=== PATIENT | female | born 1975 | race Caucasian/White ===

== ENCOUNTER 2017-08-03 11:11 | Inpatient (IN) | payer OTHER, MEDICAID, MEDICARE ==
[~2017-08-03] VITALS: Ht 167.6 cm; Wt 103.1 kg
[2017-08-03] MEDS ORDERED: ARIP1TAB13 PO (11:32)
[2017-08-03] MEDS ORDERED: SAPH10SU3 SL (11:32)
[2017-08-03] MEDS ORDERED: HYDR25TA5 PO (11:32)
[2017-08-03] MEDS ORDERED: PANT20TA2 PO (11:32)
[2017-08-03] MEDS ORDERED: AMLO5TAB2 PO (11:32)
[2017-08-03] MEDS ORDERED: DIVA500T PO (11:32)
[2017-08-03] MEDS ORDERED: LEVO-33 PO (11:32)
[2017-08-03] MEDS ORDERED: CLON0.5T PO (11:32)
[2017-08-03] MEDS ORDERED: RANI150T PO (11:32)
[2017-08-03 11:38] VITALS: BP 134/74; PULSE 99; RESP 18; TEMP 99.8; O2SAT 96
--- NOTE | 2017-08-03 11:56 | PD ---
HPI Chief Complaint: Psychiatric Symptoms Time Seen by Provider: 11:30 Travel History International Travel<30 days: No Contact w/Intl Traveler<30days: No Traveled to known affect area: No History of Present Illness HPI 42-year-old female with reported history of schizophrenia presents under [place] act initiated by the Police Department. The patient reports over the past few weeks she has had worsening hallucinations. She reports that she has been hearing voices that tell her to kill herself as well as her family. She has also been having visual hallucinations for example seeing witches and vampires She reports that her psychiatrist placed her on a new medication, she does not recall the name, one week ago but it does not seem to be helping. Today her father called the police and she was placed under [place] act. The patient denies suicidal or homicidal ideation. She denies any drug or alcohol use. She has no medical complaints at this time. [facility] Past Medical History Psychiatric: Yes Schizophrenia: Yes ?: Not Social History Alcohol Use: No Tobacco Use: No Substance Use: No Allergies-Medications (Allergen,Severity, Reaction): Coded Allergies: No Known Allergies (Unverified , 08/03/17) Reported Meds & Prescriptions Reported Meds & Active Scripts Active Reported Saphris (Asenapine) 10 Mg Subl 10 Mg SL BID Amlodipine (Amlodipine Besylate) 5 Mg Tab 5 Mg PO DAILY Ranitidine (Ranitidine HCl) 150 Mg Tab 150 Mg PO DAILY Hydrochlorothiazide 25 Mg Tab 25 Mg PO DAILY Aripiprazole 15 Mg Tab 15 Mg PO DAILY Clonazepam 0.5 Mg Tab 0.5 Mg PO TID Pantoprazole (Pantoprazole Sodium) 20 Mg Tab 20 Mg PO DAILY Levonorgestrel-Ethinyl Estradiol 0.1-0.02 Mg Tab 1 Tab PO DAILY Divalproex DR (Divalproex Sodium) 500 Mg Tabdr 500 Mg PO BID Review of Systems Except as stated in HPI: all other systems reviewed are Neg Physical Exam Narrative GENERAL: Pleasant well-developed well-nourished female in no acute distress answering questions appropriately. SKIN: Warm and dry. HEAD: Atraumatic. Normocephalic. EYES: Pupils equal and round. No scleral icterus. No injection or drainage. ENT: No nasal bleeding or discharge. Mucous membranes pink and moist. NECK: Trachea midline. No JVD. CARDIOVASCULAR: Regular rate and rhythm. No murmur appreciated. RESPIRATORY: No accessory muscle use. Clear to auscultation. Breath sounds equal bilaterally. GASTROINTESTINAL: Abdomen soft, non-tender, nondistended. Hepatic and splenic margins not palpable. MUSCULOSKELETAL: No obvious deformities. No clubbing. No cyanosis. No edema. NEUROLOGICAL: Awake and alert. No obvious cranial nerve deficits. Motor grossly within normal limits. Normal speech. PSYCHIATRIC: Flat affect, poor eye contact, appropriate mood. Insight into her illness and judgment appear somewhat reasonable. Data Data Last Documented VS Vital Signs Date Time Temp Pulse Resp B/P (MAP) Pulse Ox O2 Delivery O2 Flow Rate FiO2 08/03/17 11:38 99.8 99 18 134/74 (94) 96 Room Air Orders Orders Complete Blood Count With Diff (08/03/17 11:35) Comprehensive Metabolic Panel (08/03/17 11:35) Ed Urine Pregnancytest Poc (08/03/17 11:35) Psych Screen (08/03/17 11:35) Drug Screen, Random Urine (08/03/17 11:35) Alcohol (Ethanol) (08/03/17 11:35) Salicylates (Aspirin) (08/03/17 11:35) Tylenol (Acetaminophen) (08/03/17 11:35) Labs Laboratory Tests Test 08/03/17 11:40 White Blood Count 9.4 TH/MM3 Red Blood Count 4.13 MIL/MM3 Hemoglobin 13.5 GM/DL Hematocrit 39.5 % Mean Corpuscular Volume 95.6 FL Mean Corpuscular Hemoglobin 32.7 PG Mean Corpuscular Hemoglobin Concent 34.2 % Red Cell Distribution Width 13.2 % Platelet Count 138 TH/MM3 Mean Platelet Volume 10.7 FL Neutrophils (%) (Auto) 65.5 % Lymphocytes (%) (Auto) 25.2 % Monocytes (%) (Auto) 8.2 % Eosinophils (%) (Auto) 0.7 % Basophils (%) (Auto) 0.4 % Neutrophils # (Auto) 6.2 TH/MM3 Lymphocytes # (Auto) 2.4 TH/MM3 Monocytes # (Auto) 0.8 TH/MM3 Eosinophils # (Auto) 0.1 TH/MM3 Basophils # (Auto) 0.0 TH/MM3 CBC Comment DIFF FINAL Differential Comment Blood Urea Nitrogen 16 MG/DL Creatinine 0.97 MG/DL Random Glucose 104 MG/DL Total Protein 7.7 GM/DL Albumin 3.7 GM/DL Calcium Level 8.5 MG/DL Alkaline Phosphatase 61 U/L Aspartate Amino Transf (AST/SGOT) 19 U/L Alanine Aminotransferase (ALT/SGPT) 17 U/L Total Bilirubin 0.3 MG/DL Sodium Level 135 MEQ/L Potassium Level 3.6 MEQ/L Chloride Level 101 MEQ/L Carbon Dioxide Level 23.9 MEQ/L Anion Gap 10 MEQ/L Estimat Glomerular Filtration Rate 63 ML/MIN Salicylates Level 3.1 MG/DL Acetaminophen Level LESS THAN 2.0 MCG/ML Ethyl Alcohol Level LESS THAN 3 MG/DL MDM Medical Decision Making Medical Screen Exam Complete: Yes Emergency Medical Condition: Yes Medical Record Reviewed: Yes Differential Diagnosis Schizophrenia, acute psychosis, substance induced mood disorder, schizoaffective disorder Narrative Course 42-year-old female history of schizophrenia presents for evaluation of worsening auditory and visual hallucinations. Mental health screening discussed with the patient. Psychiatric screen ordered. Medically cleared. Diagnosis Primary Impression: Schizophrenia Qualified Codes: F20.9 - Schizophrenia, unspecified Isaias Peterson Aug 03, 2017 11:56
[2017-08-03 11:58] LABS: AUTOMATED NEUTROPHIL # 6.2 TH/MM3 (1.8-7.7); BASOPHIL % 0.4 % (0.0-2.0); EOSINOPHIL # 0.1 TH/MM3 (0-0.4); EOSINOPHIL % 0.7 % (0.0-4.0); HEMATOCRIT 39.5 % (35.0-46.0); HEMO FLAGS DIFF FINAL; LYMPH % 25.2 % (9.0-44.0); LYMPHOCYTE # 2.4 TH/MM3 (1.0-4.8); MEAN CELL VOLUME 95.6 FL (80.0-100.0); MEAN CORPUSCULAR HEMOGLOBIN 32.7 PG (27.0-34.0); MEAN CORPUSCULAR HGB CONC 34.2 % (32.0-36.0); MONO % 8.2 % (0.0-8.0); NEUT % 65.5 % (16.0-70.0); PLATELET COUNT 138 TH/MM3 (150-450); RED BLOOD COUNT 4.13 MIL/MM3 (4.00-5.30); RED CELL DISTRIBUTION WIDTH 13.2 % (11.6-17.2); WHITE BLOOD COUNT 9.4 TH/MM3 (4.0-11.0)
[2017-08-03 12:09] LABS: ANION GAP 10 MEQ/L (5-15)
[2017-08-03 12:17] LABS: ACETAMINOPHEN LESS THAN 2.0 MCG/ML (10.0-30.0); ALCOHOL LESS THAN 3 MG/DL (0-5); ALKALINE PHOSPHATASE 61 U/L (45-117); ALT (GPT) 17 U/L (10-53); AST (GOT) 19 U/L (15-37); BICARBONATE 23.9 MEQ/L (21.0-32.0); BLOOD UREA NITROGEN 16 MG/DL (7-18); CHLORIDE 101 MEQ/L (98-107); GLOMERULAR FILTRATION RATE 63 ML/MIN (>89); POTASSIUM 3.6 MEQ/L (3.5-5.1); SODIUM (NA) 135 MEQ/L (136-145); TOTAL BILIRUBIN ADULT 0.3 MG/DL (0.2-1.0)
[2017-08-03 13:59] VITALS: BP 141/94; PULSE 94; RESP 18; O2SAT 99
[2017-08-03] MEDS ORDERED: LORazepam 2 MG/ML VIAL IM PRN (14:45)
[2017-08-03] MEDS ORDERED: ALUMINUM/MAGNESIUM/SIMETH 30 ML CUP PO PRN (14:45)
[2017-08-03] MEDS: PANTOPRAZOLE SOD 20 MG DELAYED RELEASE TAB PO SCH (14:45)
[2017-08-03] MEDS ORDERED: MAGNESIUM HYDROXIDE SUSP 30 ML CUP PO PRN (14:45)
[2017-08-03] MEDS: ARIPiprazole 15 MG TAB PO SCH (14:45)
--- NOTE | 2017-08-03 14:54 | HHI.HP ---
Provisional Diagnosis Admission Date [place] I. Paranoid schizophrenia Certification of Person's Competence To Provide Express and Informed Consent I have personally examined Yareli Minaya , a person being served at [facility] on, Aug 03, 2017 14:45. Express and informed consent means consent voluntarily given in writing, by a competent person, after sufficient explanation and disclosure of the subject matter involved to enable the person to make a knowing and willful decision without any element of force, fraud, deceit, duress, or other form of constraint or coercion. This person is 18 years of age or older, is not now known to be incompetent to consent to treatment with a guardian advocate, and does not have a health care surrogate or proxy currently making medical treatment decisions. I have found this person to be one of the following: [] Competent to provide express and informed consent, as defined above, for voluntary admission to this facility and is competent to provide express and informed consent for treatment. He/she has the consistent capacity to make well reasoned, willful, and knowing decisions concerning his or her medical or mental health treatment. The person fully and consistently understands the purpose of the admission for examination/placement and is fully capable of personally exercising all rights [place] [x] Incompetent to provide express and informed consent to voluntary admission, and this is incompetent to provide express and informed consent to treatment. The person must be transferred to involuntary status and a petition for a guardian advocate filed with the Circuit Court. [] Refusing to provide express and informed consent to voluntary admission but is competent to provide express and informed consent for treatment. The person must be discharged or transferred to involuntary status. Form shall be completed within 24 hours of a person's arrival at the receiving facility and filed in the clinical record of each person: 1. Admitted on a voluntary basis 2. Permitted to provide express and informed consent to his/her own treatment 3. Allowed to transfer from involuntary to voluntary status 4. Prior to permitting a person to consent to his or her own treatment after having been previously found incompetent to consent to treatment. History of Present Illness Capacity: Lacks Capacity HPI 42-year-old female with multiyear history of schizophrenia, brought in for evaluation and treatment under a [place] act. Apparently the patient's father, with whom she resides, called the police after several weeks of worsening symptoms. The patient is apparently having both auditory and visual hallucinations. The patient's auditory hallucinations are of a command nature and tell her to kill herself, to kill her dog, and to kill members of her family. Apparently the patient's father is very worried and concerned about the patient's dangerousness to herself and others. Patient also reports visual hallucinations of seeing witches and vampires. Furthermore, upon interview, the patient is confused as to what medicines she takes and what reason she is here. She does intermittently admit to suicidal thinking as well as homicidal thinking and at other times she denies this. She is admitting to auditory hallucinations of a command nature. She denies the use of alcohol or drugs. Review of Systems Except as stated in HPI: all other systems reviewed are Neg Past Psych History Psychological trauma history Patient has a multiyear history of schizophrenia with both inpatient and outpatient treatment. Violence risk - others (6 mos) High Violence risk - self (6 mos) High Substance Abuse History Drugs/Alcohol past 12 months Denied Past Family Social History Coded Allergies: No Known Allergies (Unverified , 08/03/17) Reported Medications Asenapine (Saphris) 10 Mg Subl, 10 MG SL BID, #60 TAB.SL 0 Refills 08/03/17 Amlodipine (Amlodipine) 5 Mg Tab, 5 MG PO DAILY for Blood Pressure Management, # 30 TAB 0 Refills 08/03/17 Ranitidine (Ranitidine) 150 Mg Tab, 150 MG PO DAILY for Heartburn Management, # 30 TAB 0 Refills 08/03/17 Hydrochlorothiazide (Hydrochlorothiazide) 25 Mg Tab, 25 MG PO DAILY, #30 TAB 0 Refills 08/03/17 Aripiprazole (Aripiprazole) 15 Mg Tab, 15 MG PO DAILY, #30 TAB 0 Refills 08/03/17 Clonazepam (Clonazepam) 0.5 Mg Tab, 0.5 MG PO TID, #90 TAB 0 Refills 08/03/17 Pantoprazole (Pantoprazole) 20 Mg Tab, 20 MG PO DAILY for Reflux, #30 TAB 0 Refills 08/03/17 Levonorgestrel-Ethinyl Estradiol (Levonorgestrel-Ethinyl Estradiol) 0.1-0.02 Mg Tab, 1 TAB PO DAILY for Control, #28 TAB 0 Refills 08/03/[address] (Divalproex DR) 500 Mg Tabdr, 500 MG PO BID for Control Seizures, #60 TAB 0 Refills 08/03/17 Current Medications Medications (Trade) Dose Ordered Sig/Verena Route Start Time Stop Time Status Last Admin (Ativan) 1 mg Q6H PRN PO 08/03/17 14:45 UNV (Ativan Inj) 1 mg Q6H PRN IM 08/03/17 14:45 UNV (Tylenol) 650 mg Q4H PRN PO 08/03/17 14:45 UNV (Milk Of Magnesia Liq) 30 ml DAILY PRN PO 08/03/17 14:45 UNV (Mag-Al Plus Susp Liq) 30 ml Q6H PRN PO 08/03/17 14:45 UNV (Desyrel) 50 mg HS PRN PO 08/03/17 14:45 UNV (Norvasc) 5 mg DAILY PO 08/04/17 09:00 UNV (Abilify) 15 mg DAILY PO 08/03/17 14:45 UNV (KlonoPIN) 0.5 mg TID PO 08/03/17 18:00 UNV (Depakote Dr) 500 mg BID PO 08/03/17 21:00 UNV (Hydrodiuril) 25 mg DAILY PO 08/04/17 09:00 UNV (Protonix) 20 mg DAILY PO 08/03/17 14:45 UNV Non-Formulary Medication 1 tab DAILY PO 08/04/17 09:00 UNV Non-Formulary Medication 150 mg DAILY PO 08/04/17 09:00 UNV Family History Positive for thought disorders. Social History Patient lives with her father. She is unemployed. She receives Social Security disability. She denies alcohol or drug abuse. Patient's Strengths (min. 2) Verbal and has access to healthcare. Physical Exam GENERAL: SKIN: Warm and dry. HEAD: Normocephalic. EYES: No scleral icterus. No injection or drainage. NECK: Supple, trachea midline. No JVD or lymphadenopathy. CARDIOVASCULAR: Regular rate and rhythm without murmurs, gallops, or rubs. RESPIRATORY: Breath sounds equal bilaterally. No accessory muscle use. GASTROINTESTINAL: Abdomen soft, non-tender, nondistended. MUSCULOSKELETAL: No cyanosis, or edema. BACK: Nontender without obvious deformity. No CVA tenderness. Vital Signs Vital Signs Date Time Temp Pulse Resp B/P (MAP) Pulse Ox O2 Delivery O2 Flow Rate FiO2 08/03/17 13:59 94 18 141/94 (110) 99 Room Air 08/03/17 11:38 99.8 Lab Results Test 08/03/17 11:40 White Blood Count 9.4 TH/MM3 Red Blood Count 4.13 MIL/MM3 Hemoglobin 13.5 GM/DL Hematocrit 39.5 % Mean Corpuscular Volume 95.6 FL Mean Corpuscular Hemoglobin 32.7 PG Mean Corpuscular Hemoglobin Concent 34.2 % Red Cell Distribution Width 13.2 % Platelet Count 138 TH/MM3 Mean Platelet Volume 10.7 FL Neutrophils (%) (Auto) 65.5 % Lymphocytes (%) (Auto) 25.2 % Monocytes (%) (Auto) 8.2 % Eosinophils (%) (Auto) 0.7 % Basophils (%) (Auto) 0.4 % Neutrophils # (Auto) 6.2 TH/MM3 Lymphocytes # (Auto) 2.4 TH/MM3 Monocytes # (Auto) 0.8 TH/MM3 Eosinophils # (Auto) 0.1 TH/MM3 Basophils # (Auto) 0.0 TH/MM3 CBC Comment DIFF FINAL Differential Comment Blood Urea Nitrogen 16 MG/DL Creatinine 0.97 MG/DL Random Glucose 104 MG/DL Total Protein 7.7 GM/DL Albumin 3.7 GM/DL Calcium Level 8.5 MG/DL Alkaline Phosphatase 61 U/L Aspartate Amino Transf (AST/SGOT) 19 U/L Alanine Aminotransferase (ALT/SGPT) 17 U/L Total Bilirubin 0.3 MG/DL Sodium Level 135 MEQ/L Potassium Level 3.6 MEQ/L Chloride Level 101 MEQ/L Carbon Dioxide Level 23.9 MEQ/L Anion Gap 10 MEQ/L Estimat Glomerular Filtration Rate 63 ML/MIN Salicylates Level 3.1 MG/DL Urine Opiates Screen NEG Acetaminophen Level LESS THAN 2.0 MCG/ML Urine Barbiturates Screen NEG Urine Amphetamines Screen NEG Urine Benzodiazepines Screen NEG Urine Cocaine Screen NEG Urine Cannabinoids Screen NEG Ethyl Alcohol Level LESS THAN 3 MG/DL Mental Status Examination Speech: Hesitant Orientation: x3 Memory: Unremarkable Thought Process: Loose Association Thought Content: Bizarre thinking, Paranoid, Ideas of Reference Hallucination Type: Auditory, Visual Attention and Concentration: Abnormal Suicidal Ideation: Yes Previous Suicide Attempts: Yes Homicidal Ideation: Yes Previous Homicide Attempts: No Insight: Poor Judgment: WNL, Unrealistic Affect: Anxious Affect if Inappropriate: Blunt Mood: Anxious Motor Activity: Normal gait Assessment & Plan Problem List: (1) Schizophrenia, paranoid, chronic ICD Codes: F20.0 - Paranoid schizophrenia Assessment & Plan Estimated LOS: days. This is a 42-year-old female with a multiyear history of paranoid schizophrenia. She has been experiencing a increasing relapse of symptomatology over the last 6-8 weeks. She lives with her father and he is the one calling the police and reporting her auditory hallucinations, visual hallucinations, command hallucinations, suicidal thinking and homicidal thinking. Patient is felt to be at high risk of harm to self and others and is being admitted for evaluation and treatment. The patient will have a CBC and comprehensive metabolic profile to determine if any infectious process or metabolic process is causing or contributing to her psychosis. Additionally, we will check her vitamin B-12, vitamin D and thyroid stimulating hormone, to determine if any deficiencies in these areas are causing or contributing to her psychosis. This physician is also ordering Abilify Maintena 400 mg IM if the patient's father agrees. At this time the patient is not felt to be competent to make decisions regarding her care. This physician has furthermore ordered an EKG to evaluate the patient's cardiac conduction system in case psychotropic medicines put her at added risk of cardiac conduction defects. Patient is being placed back on her antihypertensive medicines, which she self-admittedly he has not been taking consistently. This physician is ordering a hospitalist consult to assist with the patient's medical issues. We are ordering a second opinion regarding the patient's need for civil commitment. This physician spoke to the patient's nurse regarding her recent behavior. Finally, case management will be involved to assist with information gathering and disposition planning. Sidney Andre MD Aug 03, 2017 14:54
[2017-08-03 16:02] VITALS: BP 160/84; PULSE 95; RESP 18; TEMP 98.4; O2SAT 95
[2017-08-03] MEDS: clonazePAM 0.5 MG TAB PO SCH (16:16)
[2017-08-03] MEDS: traZODone HCL 50 MG TAB PO PRN (20:59)
[2017-08-03] MEDS: DIVALPROEX DR 500 MG TABEC PO SCH (20:59)
[2017-08-04] MEDS: LORazepam 1 MG TAB PO PRN (00:33)
[2017-08-04 05:41] VITALS: BP 125/62; PULSE 86; RESP 18; TEMP 98.7; O2SAT 99
[2017-08-04] MEDS ORDERED: LEVONORGESTREL ETHINYL ESTRADIOL PO SCH (09:00)
[2017-08-04] MEDS: PANTOPRAZOLE SOD 20 MG DELAYED RELEASE TAB PO SCH (09:00)
[2017-08-04] MEDS: ARIPiprazole 15 MG TAB PO SCH (09:00)
[2017-08-04] MEDS: HYDROCHLOROTHIAZIDE 25 MG TAB PO SCH (09:00)
[2017-08-04] MEDS ORDERED: ABILIFY MAINTENA 400 MG IM ONE (09:00)
--- NOTE | 2017-08-04 09:02 | PD.CONS ---
[facility] By Dr. Andre Reason for Consult Medical management of hypertension Primary Care Physician Unknown Diagnoses: History of Present Illness This is a 42-year-old female past medical history of hypertension and schizophrenia who presented under [place] act secondary to hallucination. [facility] consulted for medical management. Patient stated that she has hypertension and is taking blood pressure medication. Otherwise she has no complaints. All review of systems reviewed and negative. Past Family Social History Allergies: Coded Allergies: No Known Allergies (Unverified , 08/03/17) Past Medical History Hypertension GERD Past Surgical History Tube placement and removal of bilateral ears Reported Medications Reported Meds & Active Scripts Active Reported Saphris (Asenapine) 10 Mg Subl 10 Mg SL BID Amlodipine (Amlodipine Besylate) 5 Mg Tab 5 Mg PO DAILY Ranitidine (Ranitidine HCl) 150 Mg Tab 150 Mg PO DAILY Hydrochlorothiazide 25 Mg Tab 25 Mg PO DAILY Aripiprazole 15 Mg Tab 15 Mg PO DAILY Clonazepam 0.5 Mg Tab 0.5 Mg PO TID Pantoprazole (Pantoprazole Sodium) 20 Mg Tab 20 Mg PO DAILY Levonorgestrel-Ethinyl Estradiol 0.1-0.02 Mg Tab 1 Tab PO DAILY Divalproex DR (Divalproex Sodium) 500 Mg Tabdr 500 Mg PO BID Active Ordered Medications Current Medications Lorazepam (Ativan) 1 mg Q6H PRN PO MODERATE TO SEVERE ANXIETY Last administered on 08/04/17 00:33; Start 08/03/17 at 14:45 Lorazepam (Ativan Inj) 1 mg Q6H PRN IM MODERATE TO SEVERE ANXIETY; Start at 14:45 Acetaminophen (Tylenol) 650 mg Q4H PRN PO Pain 1-5 or Temp >101F; Start at 14:45 Magnesium Hydroxide (Milk Of Magnesia Liq) 30 ml DAILY PRN PO CONSTIPATION; Start 08/03/17 at 14:45 Al Hydrox/Mg Hydrox/Simethicone (Mag-Al Plus Susp Liq) 30 ml Q6H PRN PO DYSPEPSIA Last administered on 08/03/17 18:21; Start 08/03/17 at 14:45 Trazodone HCl (Desyrel) 50 mg HS PRN PO INSOMNIA Last administered on 08/03/17 20:59; Start 08/03/17 at 14:45 Amlodipine Besylate (Norvasc) 5 mg DAILY PO ; Start 08/04/17 at 09:00 Aripiprazole (Abilify) 15 mg DAILY PO Last administered on 08/03/17 14:45; Start 08/03/17 at 14:45 Clonazepam (KlonoPIN) 0.5 mg TID PO Last administered on 08/03/17 16:16; Start 08/03/17 at 18:00 Divalproex Sodium (Depakote Dr) 500 mg BID PO Last administered on 08/03/17 20: 59; Start 08/03/17 at 21:00 Hydrochlorothiazide (Hydrodiuril) 25 mg DAILY PO ; Start 08/04/17 at 09:00 Pantoprazole Sodium (Protonix) 20 mg DAILY PO Last administered on 08/03/17 14: 45; Start 08/03/17 at 14:45 Non-Formulary Medication 1 tab DAILY PO ; Start 08/04/17 at 09:00; Status UNV Famotidine (Pepcid) 20 mg DAILY PO ; Start 08/04/17 at 09:00 Patient Own Medication PT OWN MED: ABIL... ONCE ONCE IM ; Start 08/04/17 at 09: 00; Stop 08/04/17 at 09:00; Status DC Family History Denies any past family history. Social History Patient denies any alcohol, tobacco, or illicit drug use. Physical Exam Vital Signs Vital Signs Date Time Temp Pulse Resp B/P (MAP) Pulse Ox O2 Delivery O2 Flow Rate FiO2 08/04/17 05:41 98.7 86 18 125/62 (83) 99 08/03/17 16:02 98.4 95 18 160/84 (109) 95 08/03/17 13:59 94 18 141/94 (110) 99 Room Air 08/03/17 11:38 99.8 99 18 134/74 (94) 96 Room Air Physical Exam GENERAL: This is a well-nourished, well-developed patient, in no apparent distress. SKIN: No rashes, ecchymoses or lesions. Cool and dry. HEAD: Atraumatic. Normocephalic. No temporal or scalp tenderness. EYES: Pupils equal round and reactive. Extraocular motions intact. No scleral icterus. No injection or drainage. ENT: Nose without bleeding, purulent drainage or septal hematoma. Throat without erythema, tonsillar hypertrophy or exudate. Uvula midline. Airway patent. NECK: Trachea midline. No JVD or lymphadenopathy. Supple, nontender, no meningeal signs. CARDIOVASCULAR: Regular rate and rhythm without murmurs, gallops, or rubs. RESPIRATORY: Clear to auscultation. Breath sounds equal bilaterally. No wheezes , rales, or rhonchi. GASTROINTESTINAL: Abdomen soft, non-tender, nondistended. No hepato-splenomegaly , or palpable masses. No guarding. MUSCULOSKELETAL: Extremities without clubbing, cyanosis, or edema. No joint tenderness, effusion, or edema noted. No calf tenderness. Negative Homans sign bilaterally. NEUROLOGICAL: Awake and alert. Patient seems to have a speech impairment but is able to communicate. Cranial nerves II through XII intact. Motor and sensory grossly within normal limits. Five out of 5 muscle strength in all muscle groups. Normal speech. Laboratory Laboratory Tests Test 08/03/17 11:40 White Blood Count 9.4 Red Blood Count 4.13 Hemoglobin 13.5 Hematocrit 39.5 Mean Corpuscular Volume 95.6 Mean Corpuscular Hemoglobin 32.7 Mean Corpuscular Hemoglobin Concent 34.2 Red Cell Distribution Width 13.2 Platelet Count 138 Mean Platelet Volume 10.7 Neutrophils (%) (Auto) 65.5 Lymphocytes (%) (Auto) 25.2 Monocytes (%) (Auto) 8.2 Eosinophils (%) (Auto) 0.7 Basophils (%) (Auto) 0.4 Neutrophils # (Auto) 6.2 Lymphocytes # (Auto) 2.4 Monocytes # (Auto) 0.8 Eosinophils # (Auto) 0.1 Basophils # (Auto) 0.0 CBC Comment DIFF FINAL Differential Comment Blood Urea Nitrogen 16 Creatinine 0.97 Random Glucose 104 Total Protein 7.7 Albumin 3.7 Calcium Level 8.5 Alkaline Phosphatase 61 Aspartate Amino Transf (AST/SGOT) 19 Alanine Aminotransferase (ALT/SGPT) 17 Total Bilirubin 0.3 Sodium Level 135 Potassium Level 3.6 Chloride Level 101 Carbon Dioxide Level 23.9 Anion Gap 10 Estimat Glomerular Filtration Rate 63 Salicylates Level 3.1 Urine Opiates Screen NEG Acetaminophen Level LESS THAN 2.0 Urine Barbiturates Screen NEG Urine Amphetamines Screen NEG Urine Benzodiazepines Screen NEG Urine Cocaine Screen NEG Urine Cannabinoids Screen NEG Ethyl Alcohol Level LESS THAN 3 Result Diagram: 08/03/17 1140 08/03/17 1140 Assessment and Plan Assessment and Plan This is a 42-year-old female past medical history of hypertension and schizophrenia who presented under [place] act secondary to hallucination Schizophrenia with psychosis/[place] act -Management per inpatient psychiatry. Hypertension -Blood pressure reviewed. Seems to be labile and patient does have multiple normotensive reading. Labile blood pressure readings most likely secondary to agitation. Continue with home regimen. GERD -Home regimen already resumed. DVT prophylaxis -Encourage ambulation. Discussed Condition With patient Jessica Mejia MD Aug 04, 2017 09:02
[2017-08-04] MEDS: amLODIPine BESYLATE 5 MG TAB PO SCH (09:19)
[2017-08-04] MEDS: FAMOTIDINE 20 MG TAB PO SCH (09:19)
[2017-08-04] MEDS: clonazePAM 0.5 MG TAB PO SCH ×3 (09:19→18:00)
[2017-08-04] MEDS: DIVALPROEX DR 500 MG TABEC PO SCH ×2 (09:19→21:42)
--- NOTE | 2017-08-04 09:51 | PD.PSY.CON ---
Provisional Diagnosis Admission Date Aug 03, 2017 at 14:35 [place] I. 1. Adjustment disorder with disturbance of emotions and conduct 2. History of schizophrenia [place] II. 1. Suspect intellectual disability History of Present Illness Service Psychiatry Consult Requested By Dr. Andre Reason for Consult Second opinion for involuntary psychiatric hospitalization Primary Care Physician Unknown HPI From Dr. Andre's H&P: 42-year-old female with multiyear history of schizophrenia, brought in for evaluation and treatment under a [place] act. Apparently the patient's father, with whom she resides, called the police after several weeks of worsening symptoms. The patient is apparently having both auditory and visual hallucinations. The patient's auditory hallucinations are of a command nature and tell her to kill herself, to kill her dog, and to kill members of her family. Apparently the patient's father is very worried and concerned about the patient's dangerousness to herself and others. Patient also reports visual hallucinations of seeing witches and vampires. Furthermore, upon interview, the patient is confused as to what medicines she takes and what reason she is here. She does intermittently admit to suicidal thinking as well as homicidal thinking and at other times she denies this. She is admitting to auditory hallucinations of a command nature. She denies the use of alcohol or drugs. On my examination today: Patient seen and examined with counselor and nurse. Chart reviewed. Case discussed with nursing staff. On my examination today, the patient seems quite childlike, and I do suspect some degree of intellectual disability. The patient tells me that for about the past month or so she has been experiencing visual hallucinations of vampires and command auditory hallucinations to kill her mother, although she then says that her mother and stepfather are . She also says that she believes that her brother might be a vampire. When asked about current AVH, she says that she is hearing voices "a little bit to kill myself, but I'm not going to do it." She insists that she has been adherent with her psychotropic medications and says that her outpatient provider has started her on a new psychotropic, although she does not feel that it has been particularly efficacious for her problems. Sleep is reportedly somewhat poor. Mood is described as "tired today." She does not appear at all dysphoric. No hypomanic or manic symptoms elicited. No delusional material. Main stressor seems to be that "my father's girlfriend has been mean to me. She is going behind his back. She's been rude to me." Denies side effects from current med regimen. No physical complaints. Remainder of the psychiatric ROS is negative. Patient says that her father is POA. Past psychiatric history: The patient has a history of schizophrenia area she follows with Dr. Carbajal. She cannot recall when she was most recently psychiatrically admitted but says that it was "a while ago. She denies a history of suicide attempts. She denies a history of violent behavior. Family history: Patient denies any family history of mental illness. Chemical dependency history: Patient denies any abuse of drugs or alcohol. Social history: Patient denies a history of abuse. She lives with her father. She is single with no children. She completed the 12th grade in special education classes. She has worked in the past in [email or web address] and also in a [employer]. She is presently on disability. She denies any access to guns or firearms. Denies any legal problems. I did endeavor to reach out to the patient's father by phone for collateral. I left a [employer] voicemail requesting a call back. Review of Systems ROS Limitations: Poor Historian Except as stated in HPI: all other systems reviewed are Neg Past Family Social History Coded Allergies: No Known Allergies (Unverified , 08/03/17) Past Medical History See electronic medical record Reported Medications Asenapine (Saphris) 10 Mg Subl, 10 MG SL BID, #60 TAB.SL 0 Refills 08/03/17 Amlodipine (Amlodipine) 5 Mg Tab, 5 MG PO DAILY for Blood Pressure Management, # 30 TAB 0 Refills 08/03/17 Ranitidine (Ranitidine) 150 Mg Tab, 150 MG PO DAILY for Heartburn Management, # 30 TAB 0 Refills 08/03/17 Hydrochlorothiazide (Hydrochlorothiazide) 25 Mg Tab, 25 MG PO DAILY, #30 TAB 0 Refills 08/03/17 Aripiprazole (Aripiprazole) 15 Mg Tab, 15 MG PO DAILY, #30 TAB 0 Refills 08/03/17 Clonazepam (Clonazepam) 0.5 Mg Tab, 0.5 MG PO TID, #90 TAB 0 Refills 08/03/17 Pantoprazole (Pantoprazole) 20 Mg Tab, 20 MG PO DAILY for Reflux, #30 TAB 0 Refills 08/03/17 Levonorgestrel-Ethinyl Estradiol (Levonorgestrel-Ethinyl Estradiol) 0.1-0.02 Mg Tab, 1 TAB PO DAILY for Control, #28 TAB 0 Refills 08/03/[address] (Divalproex DR) 500 Mg Tabdr, 500 MG PO BID for Control Seizures, #60 TAB 0 Refills 08/03/17 Current Medications Medications (Trade) Dose Ordered Sig/Verena Route Start Time Stop Time Status Last Admin (Ativan) 1 mg Q6H PRN PO 08/03/17 14:45 08/04/17 00:33 (Ativan Inj) 1 mg Q6H PRN IM 08/03/17 14:45 (Tylenol) 650 mg Q4H PRN PO 08/03/17 14:45 (Milk Of Magnesia Liq) 30 ml DAILY PRN PO 08/03/17 14:45 (Mag-Al Plus Susp Liq) 30 ml Q6H PRN PO 08/03/17 14:45 08/03/17 18:21 (Desyrel) 50 mg HS PRN PO 08/03/17 14:45 08/03/17 20:59 (Norvasc) 5 mg DAILY PO 08/04/17 09:00 08/04/17 09:19 (Abilify) 15 mg DAILY PO 08/03/17 14:45 08/04/17 09:00 (KlonoPIN) 0.5 mg TID PO 08/03/17 18:00 08/04/17 09:19 (Depakote Dr) 500 mg BID PO 08/03/17 21:00 08/04/17 09:19 (Hydrodiuril) 25 mg DAILY PO 08/04/17 09:00 (Protonix) 20 mg DAILY PO 08/03/17 14:45 08/04/17 09:00 Non-Formulary Medication 1 tab DAILY PO 08/04/17 09:00 UNV (Pepcid) 20 mg DAILY PO 08/04/17 09:00 08/04/17 09:19 Patient's Strengths (min. 2) In a monitored setting. Verbally fluent. Physical Exam Physical exam completed by hospitalist baby registry sales consultant. On my examination today, the patient appears to be in no acute physical distress. No abnormal motor movements noted. Labs and vitals reviewed: Vital Signs Vital Signs Date Time Temp Pulse Resp B/P (MAP) Pulse Ox O2 Delivery O2 Flow Rate FiO2 08/04/17 05:41 98.7 86 18 125/62 (83) 99 08/03/17 13:59 Room Air Lab Results Item Value Date Time White Blood Count 9.4 TH/MM3 08/03/17 1140 Hemoglobin 13.5 GM/DL 08/03/17 1140 Platelet Count 138 TH/MM3 L 08/03/17 1140 Sodium Level 135 MEQ/L L 08/03/17 1140 Potassium Level 3.6 MEQ/L 08/03/17 1140 Chloride Level 101 MEQ/L 08/03/17 1140 Carbon Dioxide Level 23.9 MEQ/L 08/03/17 1140 Blood Urea Nitrogen 16 MG/DL 08/03/17 1140 Creatinine 0.97 MG/DL 08/03/17 1140 Aspartate Amino Transf (AST/SGOT) 19 U/L 08/03/17 1140 Alanine Aminotransferase (ALT/SGPT) 17 U/L 08/03/17 1140 Alkaline Phosphatase 61 U/L 08/03/17 1140 Urine Opiates Screen NEG 08/03/17 1140 Urine Barbiturates Screen NEG 08/03/17 1140 Urine Amphetamines Screen NEG 08/03/17 1140 Urine Benzodiazepines Screen NEG 08/03/17 1140 Urine Cocaine Screen NEG 08/03/17 1140 Urine Cannabinoids Screen NEG 08/03/17 1140 Ethyl Alcohol Level LESS THAN 3 MG/DL 08/03/17 1140 EKG read as sinus rhythm with a QTC of 378 ms. ED urumt-dy-mvee test negative. Mental Status Examination No motor abnormalities noted. Appearance Well dressed and groomed. Speech: Hesitant, Other (odd speech pattern, stretching out the end of words.) Orientation: x3 Memory: Unremarkable Thought Process: Circumstantial Thought Content: Other (believes brother may be a vampire) Language Unremarkable Fund of Knowledge Reduced Hallucination Type: Auditory (as above. Patient does not appear internally stimulated.), Visual (as above) Attention and Concentration: Abnormal Suicidal Ideation: Yes Previous Suicide Attempts: No Homicidal Ideation: No (Pt reports CAH but no associated HI) Previous Homicide Attempts: No Insight: Poor Judgment: WNL, Poor Affect: Other (childlike) Mood: Euthymic Motor Activity: Normal gait Assessment & Plan Problem List: (1) Adjustment disorder with mixed disturbance of emotions and conduct ICD Codes: F43.25 - Adjustment disorder with mixed disturbance of emotions and conduct (2) Intellectual disability ICD Codes: F79 - Unspecified intellectual disabilities Assessment & Plan: Suspected (3) History of schizophrenia ICD Codes: Z86.59 - Personal history of other mental and behavioral disorders Assessment & Plan 42-year-old female with psychiatric history as detailed above who presents under a [place] act. Initially evaluated by Dr. Andre who continued patient's apparent historical diagnosis of schizophrenia. Patient presents to me as chiefly intellectually disabled and likely experiencing an adjustment reaction to family discord, namely between patient and father's girlfriend. She does continue to report concerning symptoms, such as CAH to self-injure although the patient does not appear at all internally stimulated nor does she appear at all distressed by these reported symptoms. Quite the contrary, she appears euthymic and even enjoying the attention she is getting on the unit. Although my suspicion for psychotic process is lower, I will nonetheless retain the patient on the unit for observation and for a med adjustment. I will be assuming primary care of the case. Retain inpatient. I concur with Dr. Andre that the patient meets criteria for involuntary psychiatric hospitalization under the [place] act, and I completed the second opinion paperwork. Healthcare surrogate/guardian advocate has been requested. I will follow up on the laboratories ordered by Dr. Andre and have also added a Depakote and ammonia level. I will titrate the patient's Abilify to 20 mg daily to manage reported symptoms. I will discontinue Maintena as we do not have enough data to ensure that this agent is well tolerated, and it is not clear that non-adherence is an issue. Continue to hold Saphris. Continue Klonopin and Depakote as ordered. Appreciate hospitalist input. Continue medical meds as ordered by the hospitalist. Continue to monitor on the high acuity unit. Continue other medications and care as ordered. Discharge Planning Pending psychiatric stabilization. Request HC Surrog/Guard Advoc?: Yes Brian Dumont MD Aug 04, 2017 09:50
[2017-08-04 13:18] LABS: AUTOMATED NEUTROPHIL # 5.1 TH/MM3 (1.8-7.7); BASOPHIL % 0.4 % (0.0-2.0); EOSINOPHIL % 0.6 % (0.0-4.0); HEMATOCRIT 38.6 % (35.0-46.0); HEMO FLAGS DIFF FINAL; LYMPH % 26.7 % (9.0-44.0); LYMPHOCYTE # 2.1 TH/MM3 (1.0-4.8); MEAN CELL VOLUME 96.5 FL (80.0-100.0); MEAN CORPUSCULAR HEMOGLOBIN 32.3 PG (27.0-34.0); MEAN CORPUSCULAR HGB CONC 33.5 % (32.0-36.0); MONO % 7.6 % (0.0-8.0); NEUT % 64.7 % (16.0-70.0); PLATELET COUNT 134 TH/MM3 (150-450); RED CELL DISTRIBUTION WIDTH 13.4 % (11.6-17.2); WHITE BLOOD COUNT 7.9 TH/MM3 (4.0-11.0)
[2017-08-04 13:40] LABS: ALT (GPT) 17 U/L (10-53); ANION GAP 9 MEQ/L (5-15); AST (GOT) 23 U/L (15-37); BICARBONATE 25.2 MEQ/L (21.0-32.0); BLOOD UREA NITROGEN 11 MG/DL (7-18); CHLORIDE 102 MEQ/L (98-107); GLOMERULAR FILTRATION RATE 63 ML/MIN (>89); POTASSIUM 3.7 MEQ/L (3.5-5.1); SODIUM (NA) 136 MEQ/L (136-145)
--- NOTE | 2017-08-04 13:43 | EKG ---
Date Performed: 08/04/2017 Time Performed: 07:51:57 PTAGE: 42 years EKG: Sinus rhythm LOW QRS VOLTAGE IN PRECORDIAL LEADS BORDERLINE ECG NO PREVIOUS TRACING DOCTOR: Marquis Fairchild Interpretating Date/Time 08/04/2017 13:39:16
[2017-08-04 14:07] LABS: ALKALINE PHOSPHATASE 54 U/L (45-117); HDL CHOLESTEROL 65.9 MG/DL (40.0-60.0); LDL CHOLESTEROL 83 MG/DL (0-99); TOTAL BILIRUBIN ADULT 0.4 MG/DL (0.2-1.0)
[2017-08-04 18:01] LABS: HEMOGLOBIN A1a 1.1 %; HEMOGLOBIN A1b 0.7 %; HEMOGLOBIN Ao 86.8 %; HEMOGLOBIN F 1.1 %; HEMOGLOBIN LA1C 1.8 %; HEMOGLOBIN P3 3.3 %
[2017-08-04 18:15] VITALS: BP 139/65; PULSE 72; RESP 20; TEMP 97.7; O2SAT 99
[2017-08-04] MEDS: traZODone HCL 50 MG TAB PO PRN (21:42)
[2017-08-05 05:38] VITALS: BP 151/71; PULSE 78; RESP 16; TEMP 98.3; O2SAT 99
[2017-08-05] MEDS: DIVALPROEX DR 500 MG TABEC PO SCH ×2 (08:45→20:43)
[2017-08-05] MEDS: amLODIPine BESYLATE 5 MG TAB PO SCH (08:45)
[2017-08-05] MEDS: HYDROCHLOROTHIAZIDE 25 MG TAB PO SCH (08:45)
[2017-08-05] MEDS: PANTOPRAZOLE SOD 20 MG DELAYED RELEASE TAB PO SCH (08:45)
[2017-08-05] MEDS: clonazePAM 0.5 MG TAB PO SCH ×3 (08:45→18:00)
[2017-08-05] MEDS: ETHINYL ESTRADIOL PO SCH (08:45)
[2017-08-05] MEDS: LEVONORGESTREL PO SCH (08:45)
[2017-08-05] MEDS: FAMOTIDINE 20 MG TAB PO SCH (08:45)
--- NOTE | 2017-08-05 11:32 | HHI.PYPN ---
Subjective Remarks Patient seen and examined with counselor. Chart reviewed. Case discussed with nursing staff. No behavioral issues overnight. On my examination today, the patient is smiling and appears quite euthymic. She remains childlike. She does say that she wants to go home and says that she slept well overnight. She continues to say in an offhand fashion that she is experiencing CAH to self injure, although she denies any suicidal or homicidal ideation and says that she will go to nursing staff if any of this changes. She denies any visual hallucinations. Denies side effects from medications. No physical complaints. Remains upset at father's girlfriend saying that she is "rude" to the patient. Review of Systems ROS Limitations: Poor Historian Except as stated in HPI: all other systems reviewed are Neg Objective Alert: Yes [place]: Person, Place Mood: Happy Affect: Other (childlike) Memory Intact: Comment (not formally assessed) Hallucinations: Auditory (Reports CAH to self-injure. Does not appear int stim.), Visual (Denies) Delusions: No Delusion Type: Other (No delusions) Suicidal: Ideation (Denies SI) Homicidal: Ideation (Denies HI) Insight/Judgment Poor Remarks No motor abnormalities noted. Thought process fairly linear. Speech peculiarity of stretching out the tail-end of words continues. Grooming and hygiene good. Labs Test 08/04/17 11:58 08/04/17 18:35 White Blood Count 7.9 TH/MM3 Red Blood Count 4.00 MIL/MM3 Hemoglobin 12.9 GM/DL Hematocrit 38.6 % Mean Corpuscular Volume 96.5 FL Mean Corpuscular Hemoglobin 32.3 PG Mean Corpuscular Hemoglobin Concent 33.5 % Red Cell Distribution Width 13.4 % Platelet Count 134 TH/MM3 Mean Platelet Volume 11.9 FL Neutrophils (%) (Auto) 64.7 % Lymphocytes (%) (Auto) 26.7 % Monocytes (%) (Auto) 7.6 % Eosinophils (%) (Auto) 0.6 % Basophils (%) (Auto) 0.4 % Neutrophils # (Auto) 5.1 TH/MM3 Lymphocytes # (Auto) 2.1 TH/MM3 Monocytes # (Auto) 0.6 TH/MM3 Eosinophils # (Auto) 0.0 TH/MM3 Basophils # (Auto) 0.0 TH/MM3 CBC Comment DIFF FINAL Differential Comment Blood Urea Nitrogen 11 MG/DL Creatinine 0.97 MG/DL Random Glucose 109 MG/DL Total Protein 7.1 GM/DL Albumin 3.4 GM/DL Calcium Level 8.3 MG/DL Alkaline Phosphatase 54 U/L Aspartate Amino Transf (AST/SGOT) 23 U/L Alanine Aminotransferase (ALT/SGPT) 17 U/L Total Bilirubin 0.4 MG/DL Sodium Level 136 MEQ/L Potassium Level 3.7 MEQ/L Chloride Level 102 MEQ/L Carbon Dioxide Level 25.2 MEQ/L Anion Gap 9 MEQ/L Estimat Glomerular Filtration Rate 63 ML/MIN Hemoglobin A1c 4.9 % Triglycerides Level 87 MG/DL Cholesterol Level 166 MG/DL LDL Cholesterol 83 MG/DL HDL Cholesterol 65.9 MG/DL Cholesterol/HDL Ratio 2.51 RATIO Vitamin B12 Level 516 PG/ML 25-Hydroxy Vitamin D Total 39.1 ng/ML Thyroid Stimulating Hormone 3rd Gen 1.560 uIU/ML Ammonia 26 MCMOL/L Valproic Acid (Depakene) Level 57 MCG/ML Labs reviewed. Platelet count stable. GFR stable. TSH, vitamin D and vitamin B12 level all within normal limits. Depakote level within the therapeutic range and ammonia level not elevated. Vitals/IOs Vital Signs Date Time Temp Pulse Resp B/P (MAP) Pulse Ox O2 Delivery O2 Flow Rate FiO2 08/05/17 05:38 98.3 78 16 151/71 (97) 99 08/03/17 13:59 Room Air Assessment & Plan Problem List: (1) Adjustment disorder with mixed disturbance of emotions and conduct ICD Codes: F43.25 - Adjustment disorder with mixed disturbance of emotions and conduct (2) Intellectual disability ICD Codes: F79 - Unspecified intellectual disabilities (3) History of schizophrenia ICD Codes: Z86.59 - Personal history of other mental and behavioral disorders Assessment & Plan Continue to suspect primarily an adjustment reaction related to discord and conflict with patient's father's girlfriend. Titrate Abilify to 25 mg daily. Continue to monitor on the high acuity unit. Continue other medications and care as ordered. Justification for Cont. Inpt. monitoring for impairments in safety; none noted. Medication changes. Discharge Planning I see from counselors notes that the patient's family is pushing for assisted living placement or even state psychiatric hospitalization. I certainly do not think the latter is appropriate in the present case, although [facility] placement might be considered if patient is willing. I did broach the topic today, and she is presently at best lukewarm about the possibility of being placed. Request HC Surrog/Guard Advoc?: Yes Brian Dumont MD Aug 05, 2017 11:32
[2017-08-05] MEDS ORDERED: PILL SPLITTER OTHER PRN (14:30)
[2017-08-05 17:51] VITALS: BP 146/69; PULSE 81; RESP 18; TEMP 98.4; O2SAT 99
[2017-08-05] MEDS: traZODone HCL 50 MG TAB PO PRN (20:46)
[2017-08-05] MEDS: LORazepam 1 MG TAB PO PRN (20:46)
[2017-08-06 06:14] VITALS: BP 131/58; PULSE 74; RESP 18; TEMP 98.4; O2SAT 98
[2017-08-06] MEDS: PANTOPRAZOLE SOD 20 MG DELAYED RELEASE TAB PO SCH (08:04)
[2017-08-06] MEDS: HYDROCHLOROTHIAZIDE 25 MG TAB PO SCH (08:04)
[2017-08-06] MEDS: clonazePAM 0.5 MG TAB PO SCH ×3 (08:04→17:47)
[2017-08-06] MEDS: ARIPiprazole 10 MG TAB PO SCH (08:04)
[2017-08-06] MEDS: ETHINYL ESTRADIOL PO SCH (08:05)
[2017-08-06] MEDS: DIVALPROEX DR 500 MG TABEC PO SCH ×2 (08:05→20:24)
[2017-08-06] MEDS: amLODIPine BESYLATE 5 MG TAB PO SCH (08:05)
[2017-08-06] MEDS: FAMOTIDINE 20 MG TAB PO SCH (08:05)
[2017-08-06] MEDS: LEVONORGESTREL PO SCH (08:05)
--- NOTE | 2017-08-06 10:29 | HHI.PYPN ---
Subjective Remarks Patient seen and examined with counselor. Chart reviewed. Case discussed with nursing staff who reports patient has been no behavioral problem. Patient is reportedly complaining of some dysuria per nurse. On my examination today, the patient is quite childlike. She says that she is feeling well. She is requesting discharge. She denies any AVH. She continues to insist that conflict with her father's girlfriend is the cause of her admission, saying "she 's always sending me in to the hospital." Patient says that she just plans to ignore father's girlfriend going forward to limit conflict. Denies side effects from medications. No physical complaints. Review of Systems ROS Limitations: Poor Historian Except as stated in HPI: all other systems reviewed are Neg Objective Alert: Yes [place]: Person, Place Mood: Happy Affect: Euthymic, Other (childlike) Memory Intact: Comment (not assessed) Hallucinations: Other (denies AVH) Delusions: No Delusion Type: Other (No delusions elicited) Suicidal: Ideation (no SI) Homicidal: Ideation (no HI) Insight/Judgment Poor Remarks No motor abnormalities noted. Labs Labs reviewed. Vitals/IOs Vital Signs Date Time Temp Pulse Resp B/P (MAP) Pulse Ox O2 Delivery O2 Flow Rate FiO2 08/06/17 06:14 98.4 74 18 131/58 (82) 98 08/03/17 13:59 Room Air Assessment & Plan Problem List: (1) Adjustment disorder with mixed disturbance of emotions and conduct ICD Codes: F43.25 - Adjustment disorder with mixed disturbance of emotions and conduct (2) Intellectual disability ICD Codes: F79 - Unspecified intellectual disabilities (3) History of schizophrenia ICD Codes: Z86.59 - Personal history of other mental and behavioral disorders Assessment & Plan Continue to suspect presenting symptoms related to acting out as part of intellectual disability. No evidence of ted gene psychosis on the unit. Continue Abilify and other psychotropics as ordered. Check a UA. Continue to monitor on the inpatient unit. Continue other medications and care as ordered. Justification for Cont. Inpt. Monitoring for impairments in safety, none noted. Discharge Planning Possible discharge shortly after the weekend barring some clinical deterioration. Counselor to reach out to father. Request HC Surrog/Guard Advoc?: Yes Brian Dumont MD Aug 06, 2017 10:29
[2017-08-06 15:02] LABS: BACTERIA, URINE MANY /hpf; BLOOD, URINE MOD (NEG); COMMENT (UR) CULTURE INDICATED; CULTURE IF INDICATED CULTURE INDICATED; GLUCOSE,URINE NEG (NEG); KETONE, URINE NEG (NEG); MUCUS URINE FEW /lpf (OCC); NITRITE,URINE NEG (NEG); SQUAMOUS EPITHELIAL CELL URINE 23 /hpf (0-5); URINE COLOR YELLOW (YELLW/STRAW)
[2017-08-06 18:23] VITALS: BP 138/72; PULSE 79; RESP 17; TEMP 97.4; O2SAT 99
[2017-08-06] MEDS: traZODone HCL 50 MG TAB PO PRN (20:25)
[2017-08-07 05:34] VITALS: BP 132/71; PULSE 81; RESP 16; TEMP 99; O2SAT 98
[2017-08-07] MEDS: LEVONORGESTREL PO SCH (08:36)
[2017-08-07] MEDS: ETHINYL ESTRADIOL PO SCH (08:36)
[2017-08-07] MEDS: DIVALPROEX DR 500 MG TABEC PO SCH ×2 (08:37→20:24)
[2017-08-07] MEDS: ARIPiprazole 10 MG TAB PO SCH (08:37)
[2017-08-07] MEDS: amLODIPine BESYLATE 5 MG TAB PO SCH (08:38)
[2017-08-07] MEDS: clonazePAM 0.5 MG TAB PO SCH ×3 (08:38→17:06)
[2017-08-07] MEDS: HYDROCHLOROTHIAZIDE 25 MG TAB PO SCH (08:38)
[2017-08-07] MEDS: FAMOTIDINE 20 MG TAB PO SCH (08:39)
[2017-08-07] MEDS: PANTOPRAZOLE SOD 20 MG DELAYED RELEASE TAB PO SCH (08:40)
--- NOTE | 2017-08-07 13:09 | HHI.PYPN ---
Subjective Remarks Patient seen and case discussed with nurse. Labs reviewed. Continues to remain loud, intrusive, impulsive and inappropriate. Review of Systems Except as stated in HPI: all other systems reviewed are Neg Objective Alert: Yes [place]: Person, Place Mood: Happy Affect: Euthymic, Other (childlike) Memory Intact: Comment (not assessed) Hallucinations: Other (denies AVH) Delusions: No Delusion Type: Other (No delusions elicited) Suicidal: Ideation (no SI) Homicidal: Ideation (no HI) Insight/Judgment Impaired Labs Test 08/06/17 14:26 Urine Color YELLOW Urine Turbidity CLOUDY Urine pH 7.0 Urine Specific [place] 1.018 Urine Protein 30 mg/dL Urine Glucose (UA) NEG mg/dL Urine Ketones NEG mg/dL Urine Occult Blood MOD Urine Nitrite NEG Urine Bilirubin NEG Urine Urobilinogen LESS THAN 2.0 MG/DL Urine Leukocyte Esterase LARGE Urine RBC 9 /hpf Urine WBC 21 /hpf Urine Squamous Epithelial Cells 23 /hpf Urine Amorphous Sediment RARE Urine Bacteria MANY /hpf Urine Mucus FEW /lpf Microscopic Urinalysis Comment CULTURE INDICATED Date/Time Source Procedure Growth Status 08/06/17 14:26 Urine Clean Catch Urine Culture - Final 50-100,000 CFU/ML MIXED GRAM POSITIVE... Complete Vitals/IOs Vital Signs Date Time Temp Pulse Resp B/P (MAP) Pulse Ox O2 Delivery O2 Flow Rate FiO2 08/07/17 05:34 99.0 81 16 132/71 (91) 98 08/03/17 13:59 Room Air Assessment & Plan Problem List: (1) Adjustment disorder with mixed disturbance of emotions and conduct ICD Codes: F43.25 - Adjustment disorder with mixed disturbance of emotions and conduct (2) Intellectual disability ICD Codes: F79 - Unspecified intellectual disabilities (3) History of schizophrenia ICD Codes: Z86.59 - Personal history of other mental and behavioral disorders Assessment & Plan Estimated LOS: days continue antipsychotic and mood stabilizing therapies. Justification for Cont. Inpt. Patient remains psychotic and unable to care for self. Request HC Surrog/Guard Advoc?: Yes Sidney Andre MD Aug 07, 2017 13:09
[2017-08-07 17:29] VITALS: BP 132/71; PULSE 95; RESP 17; TEMP 98.3; O2SAT 98
[2017-08-07] MEDS: traZODone HCL 50 MG TAB PO PRN (20:24)
[2017-08-08 05:53] VITALS: BP 136/80; PULSE 83; RESP 18; TEMP 98.2; O2SAT 98
[2017-08-08] MEDS: ARIPiprazole 10 MG TAB PO SCH (08:15)
[2017-08-08] MEDS: LEVONORGESTREL PO SCH (08:15)
[2017-08-08] MEDS: ETHINYL ESTRADIOL PO SCH (08:15)
[2017-08-08] MEDS: HYDROCHLOROTHIAZIDE 25 MG TAB PO SCH (08:16)
[2017-08-08] MEDS: DIVALPROEX DR 500 MG TABEC PO SCH ×2 (08:16→21:00)
[2017-08-08] MEDS: clonazePAM 0.5 MG TAB PO SCH ×3 (08:17→17:20)
[2017-08-08] MEDS: amLODIPine BESYLATE 5 MG TAB PO SCH (08:17)
[2017-08-08] MEDS: PANTOPRAZOLE SOD 20 MG DELAYED RELEASE TAB PO SCH (08:18)
[2017-08-08] MEDS: FAMOTIDINE 20 MG TAB PO SCH (08:18)
--- NOTE | 2017-08-08 13:12 | HHI.PYPN ---
Subjective Remarks Patient seen and examined with nurse. Chart reviewed. Case discussed with nursing staff. No behavioral issues noted overnight. On my examination today, the patient reports that she slept well. She does report some auditory hallucinations last night but denies any AVH this morning. She says that she simply ignored them when they happen. In good spirits; no mood symptoms. Denies side effects from medications. No physical complaints. Review of Systems ROS Limitations: Poor Historian Except as stated in HPI: all other systems reviewed are Neg Objective Alert: Yes [place]: Person, Place Mood: Calm, Happy Affect: Euthymic, Other (remains fairly childlike) Memory Intact: Comment (not assessed) Hallucinations: Other (denies AVH currently) Delusions: No Delusion Type: Other (no delusional material) Suicidal: Ideation (no SI) Homicidal: Ideation (no HI) Insight/Judgment Poor Remarks No motoric abnormalities noted. Grooming and hygiene good. Labs Date/Time Source Procedure Growth Status 08/06/17 14:26 Urine Clean Catch Urine Culture - Final 50-100,000 CFU/ML MIXED GRAM POSITIVE... Complete Labs reviewed. Urinalysis reveals mixed reina Vitals/IOs Vital Signs Date Time Temp Pulse Resp B/P (MAP) Pulse Ox O2 Delivery O2 Flow Rate FiO2 08/08/17 05:53 98.2 83 18 136/80 (98) 98 Assessment & Plan Problem List: (1) Adjustment disorder with mixed disturbance of emotions and conduct ICD Codes: F43.25 - Adjustment disorder with mixed disturbance of emotions and conduct (2) Intellectual disability ICD Codes: F79 - Unspecified intellectual disabilities (3) History of schizophrenia ICD Codes: Z86.59 - Personal history of other mental and behavioral disorders Assessment & Plan Titrate Abilify to 30 mg daily to target recent auditory hallucinations. Continue other psychotropics as ordered. Continue to monitor on the inpatient unit. Continue other medications and care as ordered. Justification for Cont. Inpt. Risk for decompensation Discharge Planning Discharge home versus [facility] Request HC Surrog/Guard Advoc?: Yes Brian Dumont MD Aug 08, 2017 13:12
--- NOTE | 2017-08-08 15:39 | HHI.PR ---
Subjective Remarks Follow-up for medical management Patient no complaints. She stated that she is very anxious to go back home her father does not want her home. She stated that she was told she would have to go to SNF. Otherwise she denies any pain and stated that she is doing well. Objective Vitals Vital Signs Date Time Temp Pulse Resp B/P (MAP) Pulse Ox O2 Delivery O2 Flow Rate FiO2 08/08/17 05:53 98.2 83 18 136/80 (98) 98 08/07/17 17:29 98.3 95 17 132/71 (91) 98 Result Diagram: 08/04/17 1158 08/04/17 1158 Objective Remarks GENERAL: in NAD CARDIOVASCULAR: Regular rate and rhythm without murmurs, gallops, or rubs. RESPIRATORY: Breath sounds equal bilaterally. No accessory muscle use. GASTROINTESTINAL: Abdomen soft, non-tender, nondistended. MUSCULOSKELETAL: No cyanosis, or edema. BACK: Nontender without obvious deformity. No CVA tenderness. Medications and IVs Current Medications Lorazepam (Ativan) 1 mg Q6H PRN PO MODERATE TO SEVERE ANXIETY Last administered on 08/05/17 20:46; Start 08/03/17 at 14:45 Lorazepam (Ativan Inj) 1 mg Q6H PRN IM MODERATE TO SEVERE ANXIETY; Start at 14:45 Acetaminophen (Tylenol) 650 mg Q4H PRN PO Pain 1-5 or Temp >101F; Start at 14:45 Magnesium Hydroxide (Milk Of Magnesia Liq) 30 ml DAILY PRN PO CONSTIPATION; Start 08/03/17 at 14:45 Al Hydrox/Mg Hydrox/Simethicone (Mag-Al Plus Susp Liq) 30 ml Q6H PRN PO DYSPEPSIA Last administered on 08/03/17 18:21; Start 08/03/17 at 14:45 Trazodone HCl (Desyrel) 50 mg HS PRN PO INSOMNIA Last administered on 08/07/17 20:24; Start 08/03/17 at 14:45 Amlodipine Besylate (Norvasc) 5 mg DAILY PO Last administered on 08/08/17 08: 17; Start 08/04/17 at 09:00 Aripiprazole (Abilify) 15 mg DAILY PO Last administered on 08/04/17 09:00; Start 08/03/17 at 14:45; Stop 08/04/17 at 10:11; Status DC Clonazepam (KlonoPIN) 0.5 mg TID PO Last administered on 08/08/17 12:43; Start 08/03/17 at 18:00 Divalproex Sodium (Depakote Dr) 500 mg BID PO Last administered on 08/08/17 08 :16; Start 08/03/17 at 21:00 Hydrochlorothiazide (Hydrodiuril) 25 mg DAILY PO Last administered on 08:16; Start 08/04/17 at 09:00 Pantoprazole Sodium (Protonix) 20 mg DAILY PO Last administered on 08/08/17 08 :18; Start 08/03/17 at 14:45 Non-Formulary Medication 1 tab DAILY PO ; Start 08/04/17 at 09:00; Status UNV Famotidine (Pepcid) 20 mg DAILY PO Last administered on 08/08/17 08:18; Start 08/04/17 at 09:00 Patient Own Medication PT OWN MED: ABIL... ONCE ONCE IM ; Start 08/04/17 at 09: 00; Stop 08/04/17 at 09:00; Status DC Aripiprazole (Abilify) 20 mg DAILY PO Last administered on 08/05/17 08:45; Start 08/05/17 at 09:00; Stop 08/05/17 at 14:17; Status DC Patient Own Medication PT OWN MED: LEVONORGESTEREL/ ETHINYL ... DAILY PO Last administered on 08/08/17 08:15; Start 08/05/17 at 09:00 Aripiprazole (Abilify) 25 mg DAILY PO Last administered on 08/08/17 08:15; Start 08/06/17 at 09:00; Stop 08/08/17 at 13:07; Status DC Miscellaneous (Pill Splitter) 1 ea UNSCH PRN OTHER SEE LABEL COMMENTS; Start at 14:30 Aripiprazole (Abilify) 30 mg DAILY PO ; Start 08/09/17 at 09:00 A/P Assessment and Plan This is a 42-year-old female past medical history of hypertension and schizophrenia who presented under [place] act secondary to hallucination Schizophrenia with psychosis/[place] act -Management per inpatient psychiatry. Hypertension -Blood pressure reviewed. Seems to be labile and patient does have multiple normotensive reading. Now that agitation is more controlled blood pressure has been relatively stable and mostly normotensive. GERD -Continue with home medication. DVT prophylaxis -Encourage ambulation. Discharge Planning Patient is medically stable. Reconsult or call for any concerns. Jessica Mejia MD Aug 08, 2017 15:39
[2017-08-08 17:45] VITALS: BP 130/81; PULSE 78; RESP 17; TEMP 99; O2SAT 98
[2017-08-08] MEDS: traZODone HCL 50 MG TAB PO PRN (21:00)
[2017-08-08] MEDS: ACETAMINOPHEN 325 MG TAB PO PRN (21:00)
[2017-08-08] MEDS: LORazepam 1 MG TAB PO PRN (21:00)
[2017-08-09 05:56] VITALS: BP 108/54; PULSE 93; RESP 18; TEMP 98.5; O2SAT 97
[2017-08-09] MEDS: DIVALPROEX DR 500 MG TABEC PO SCH ×2 (07:28→20:47)
[2017-08-09] MEDS: LEVONORGESTREL PO SCH (07:28)
[2017-08-09] MEDS: ETHINYL ESTRADIOL PO SCH (07:28)
[2017-08-09] MEDS: ARIPiprazole 30 MG TAB PO SCH (07:28)
[2017-08-09] MEDS: HYDROCHLOROTHIAZIDE 25 MG TAB PO SCH (07:29)
[2017-08-09] MEDS: clonazePAM 0.5 MG TAB PO SCH ×3 (07:29→17:08)
[2017-08-09] MEDS: FAMOTIDINE 20 MG TAB PO SCH (07:30)
[2017-08-09] MEDS: amLODIPine BESYLATE 5 MG TAB PO SCH (07:30)
[2017-08-09] MEDS: PANTOPRAZOLE SOD 20 MG DELAYED RELEASE TAB PO SCH (07:31)
[2017-08-09] MEDS: ACETAMINOPHEN 325 MG TAB PO PRN ×2 (07:31→20:47)
--- NOTE | 2017-08-09 15:45 | HHI.PYPN ---
Subjective Remarks Patient was seen today for psychiatric reevaluation along with nurse in charge, patient was found in her bed, calm, cooperative and in a good spirit. Patient says that she learned her lesson, she says that she will never argued again with her father's girlfriend. She describes herself as a very impulsive and short temper person, but "I need to learn how to hold myself to avoid to come back here". Patient reports good mood, says that she has been doing fine, integrated to activities, she has made friends in the unit, she has been compliant her medications, no significant side effects. She has been described as a pleasant patient, no agitation or aggressive reported. Review of Systems Other No somatic complaints Objective Alert: Yes [place]: Person, Place Mood: Calm, Happy Affect: Euthymic, Other (remains fairly childlike) Memory Intact: Comment (not assessed) Hallucinations: Other (denies AVH currently) Delusions: No Delusion Type: Other (no delusional material) Suicidal: Ideation (no SI) Homicidal: Ideation (no HI) Insight/Judgment Good Labs Date/Time Source Procedure Growth Status 08/06/17 14:26 Urine Clean Catch Urine Culture - Final 50-100,000 CFU/ML MIXED GRAM POSITIVE... Complete Vitals/IOs Vital Signs Date Time Temp Pulse Resp B/P (MAP) Pulse Ox O2 Delivery O2 Flow Rate FiO2 08/09/17 05:56 98.5 93 18 108/54 (72) 97 Assessment & Plan Problem List: (1) Adjustment disorder with mixed disturbance of emotions and conduct ICD Codes: F43.25 - Adjustment disorder with mixed disturbance of emotions and conduct (2) Intellectual disability ICD Codes: F79 - Unspecified intellectual disabilities (3) History of schizophrenia ICD Codes: Z86.59 - Personal history of other mental and behavioral disorders Assessment & Plan: Patient will continue psychiatric hospitalization for safety and stabilization. Assessment & Plan Estimated LOS: days Justification for Cont. Inpt. Patient will continue psychiatric hospitalization for safety and stabilization. Request HC Surrog/Guard Advoc?: Yes Valente Montoya MD Aug 09, 2017 15:45
[2017-08-09 17:26] VITALS: BP 124/60; PULSE 84; RESP 17; TEMP 98.9; O2SAT 97
[2017-08-09] MEDS: LORazepam 1 MG TAB PO PRN (20:47)
[2017-08-09] MEDS: traZODone HCL 50 MG TAB PO PRN (20:47)
[2017-08-10 06:01] VITALS: BP 155/79; PULSE 88; RESP 18; TEMP 98.2; O2SAT 99
[2017-08-10] MEDS: FAMOTIDINE 20 MG TAB PO SCH (08:34)
[2017-08-10] MEDS: DIVALPROEX DR 500 MG TABEC PO SCH ×2 (08:34→20:30)
[2017-08-10] MEDS: clonazePAM 0.5 MG TAB PO SCH ×3 (08:34→17:42)
[2017-08-10] MEDS: PANTOPRAZOLE SOD 20 MG DELAYED RELEASE TAB PO SCH (08:34)
[2017-08-10] MEDS: amLODIPine BESYLATE 5 MG TAB PO SCH (08:34)
[2017-08-10] MEDS: ARIPiprazole 30 MG TAB PO SCH (08:34)
[2017-08-10] MEDS: ACETAMINOPHEN 325 MG TAB PO PRN (08:34)
[2017-08-10] MEDS: ETHINYL ESTRADIOL PO SCH (08:35)
[2017-08-10] MEDS: HYDROCHLOROTHIAZIDE 25 MG TAB PO SCH (08:35)
[2017-08-10] MEDS: LEVONORGESTREL PO SCH (08:35)
--- NOTE | 2017-08-10 15:04 | HHI.PYPN ---
Subjective Remarks Patient seen and examined with nurse. Chart reviewed. Case discussed in treatment team. Per nursing staff, the patient is doing very well on the unit. Nurse notes that the patient was insulted by a peer but took this insult in stride, and her response to the peer was quite appropriate. On my examination today, the patient is in good spirits. She says that she slept well overnight. She denies any SI or HI. Denies any audiovisual hallucinations. Denies any side effects from medications. No physical complaints. Counselor has tried several times to reach out the patient's father to discuss discharge planning. I have tried to reach him myself both at the number listed in [employer] as well as his cell [phone]. I have left a voicemail on the latter requesting a call back. Review of Systems Except as stated in HPI: all other systems reviewed are Neg Objective Alert: Yes [place]: Person, Place Mood: Calm Affect: Appropriate (somewhat childlike), Euthymic Memory Intact: Comment (not assessed) Hallucinations: Other (denies AVH) Delusions: No Delusion Type: Other (no delusions) Suicidal: Ideation (denies SI) Homicidal: Ideation (denies HI) Insight/Judgment Poor Remarks No motor abnormalities noted. Thought process linear. Grooming and hygiene good. Labs Test 08/09/17 20:03 Valproic Acid (Depakene) Level 54 MCG/ML Date/Time Source Procedure Growth Status 08/06/17 14:26 Urine Clean Catch Urine Culture - Final 50-100,000 CFU/ML MIXED GRAM POSITIVE... Complete Labs reviewed. Depakote level within the therapeutic range. Vitals/IOs Vital Signs Date Time Temp Pulse Resp B/P (MAP) Pulse Ox O2 Delivery O2 Flow Rate FiO2 08/10/17 06:01 98.2 88 18 155/79 (104) 99 Assessment & Plan Problem List: (1) Adjustment disorder with mixed disturbance of emotions and conduct ICD Codes: F43.25 - Adjustment disorder with mixed disturbance of emotions and conduct (2) Intellectual disability ICD Codes: F79 - Unspecified intellectual disabilities (3) History of schizophrenia ICD Codes: Z86.59 - Personal history of other mental and behavioral disorders Assessment & Plan Continue current psychotropics as ordered. Continue to monitor on the inpatient unit. Continue other medications and care as ordered. Justification for Cont. Inpt. Discharge planning Discharge Planning Patient no longer meets criteria for involuntary hospitalization, requesting discharge. Father could not be reached either by counselor or myself. Absent safe discharge, patient will be retained on unit overnight with plan for discharge home with father tomorrow. Patient may sign voluntary in the meantime. Request HC Surrog/Guard Advoc?: Yes Brian Dumont MD Aug 10, 2017 15:04
[2017-08-10 17:54] VITALS: BP 138/76; PULSE 86; RESP 18; TEMP 98.7; O2SAT 99
[2017-08-10] MEDS: traZODone HCL 50 MG TAB PO PRN (20:29)
[2017-08-11 06:16] VITALS: BP 126/68; PULSE 80; RESP 18; TEMP 97.6; O2SAT 98
[2017-08-11] MEDS: ETHINYL ESTRADIOL PO SCH (08:52)
[2017-08-11] MEDS: LEVONORGESTREL PO SCH (08:52)
[2017-08-11] MEDS: amLODIPine BESYLATE 5 MG TAB PO SCH (08:52)
[2017-08-11] MEDS: PANTOPRAZOLE SOD 20 MG DELAYED RELEASE TAB PO SCH (08:52)
[2017-08-11] MEDS: DIVALPROEX DR 500 MG TABEC PO SCH ×2 (08:52→21:12)
[2017-08-11] MEDS: FAMOTIDINE 20 MG TAB PO SCH (08:52)
[2017-08-11] MEDS: clonazePAM 0.5 MG TAB PO SCH ×3 (08:52→17:42)
[2017-08-11] MEDS: HYDROCHLOROTHIAZIDE 25 MG TAB PO SCH (08:53)
[2017-08-11] MEDS: ARIPiprazole 30 MG TAB PO SCH (08:53)
--- NOTE | 2017-08-11 10:21 | HHI.PYPN ---
Subjective Remarks Patient seen and examined with counselor and nurse. Chart reviewed. Case discussed with nursing staff. On my exam, patient is in good spirits. She denies SI/HI/AVH. No issues with mood. Agreeable to remaining on unit for possible [facility] placement, but if this is not feasible would like to go home with father. Denies side effects from medications. No physical complaints. Review of Systems Except as stated in HPI: all other systems reviewed are Neg Objective Alert: Yes [place]: Person, Place Mood: Calm Affect: Appropriate, Euthymic Memory Intact: Comment (not assessed) Hallucinations: Other (No AVH) Delusions: No Delusion Type: Other (No delusional material elicited) Suicidal: Ideation (denies SI) Homicidal: Ideation (denies HI) Insight/Judgment Poor Remarks No motor abnormalities noted. TP linear. Labs Labs reviewed. No new labs. Vitals/IOs Vital Signs Date Time Temp Pulse Resp B/P (MAP) Pulse Ox O2 Delivery O2 Flow Rate FiO2 08/11/17 06:16 97.6 80 18 126/68 (87) 98 Assessment & Plan Problem List: (1) Adjustment disorder with mixed disturbance of emotions and conduct ICD Codes: F43.25 - Adjustment disorder with mixed disturbance of emotions and conduct (2) Intellectual disability ICD Codes: F79 - Unspecified intellectual disabilities (3) History of schizophrenia ICD Codes: Z86.59 - Personal history of other mental and behavioral disorders Assessment & Plan Patient continues to do well on the unit. Agreeable to remaining on unit for a time for possible [facility] placement. Continue current psychotropics as ordered. Continue other medications and care as ordered. Justification for Cont. Inpt. Discharge planning Discharge Planning Dental Office Manager from [facility] to come out today to evaluate patient for possible admission there; they do have a female bed available. Possible d/c to [facility] tomorrow versus home with father. Request HC Surrog/Guard Advoc?: Yes Brian Dumont MD Aug 11, 2017 10:21
[2017-08-11 17:31] VITALS: BP 140/83; PULSE 87; RESP 18; TEMP 97.9; O2SAT 98
[2017-08-11] MEDS: traZODone HCL 50 MG TAB PO PRN (21:12)
[2017-08-12 05:36] VITALS: BP 108/55; PULSE 72; RESP 18; TEMP 98.2; O2SAT 97
[2017-08-12] MEDS: ETHINYL ESTRADIOL PO SCH (08:54)
[2017-08-12] MEDS: LEVONORGESTREL PO SCH (08:54)
[2017-08-12] MEDS: amLODIPine BESYLATE 5 MG TAB PO SCH (08:55)
[2017-08-12] MEDS: PANTOPRAZOLE SOD 20 MG DELAYED RELEASE TAB PO SCH (08:55)
[2017-08-12] MEDS: HYDROCHLOROTHIAZIDE 25 MG TAB PO SCH (08:55)
[2017-08-12] MEDS: FAMOTIDINE 20 MG TAB PO SCH (08:55)
[2017-08-12] MEDS: clonazePAM 0.5 MG TAB PO SCH ×3 (08:55→17:55)
[2017-08-12] MEDS: ARIPiprazole 30 MG TAB PO SCH (08:55)
[2017-08-12] MEDS: DIVALPROEX DR 500 MG TABEC PO SCH ×2 (08:55→21:19)
--- NOTE | 2017-08-12 11:25 | HHI.PYPN ---
Subjective Remarks Patient seen and examined with nurse. Chart reviewed. Case discussed with nursing staff. No behavioral issues on the unit. On my examination today, the patient is in good spirits. She denies SI, HI or AVH. She is agreeable to going to assisted living facility. Denies side effects from medications. No physical complaints. Review of Systems Except as stated in HPI: all other systems reviewed are Neg Objective Alert: Yes [place]: Person, Place Mood: Calm Affect: Euthymic Memory Intact: Comment (not formally assessed) Hallucinations: Other (no hallucinations) Delusions: No Delusion Type: Other (no delusions) Suicidal: Ideation (denies SI) Homicidal: Ideation (denies HI) Insight/Judgment Poor Remarks No motoric abnormalities noted Labs Date/Time Source Procedure Growth Status 08/06/17 14:26 Urine Clean Catch Urine Culture - Final 50-100,000 CFU/ML MIXED GRAM POSITIVE... Complete Labs reviewed. Vitals/IOs Vital Signs Date Time Temp Pulse Resp B/P (MAP) Pulse Ox O2 Delivery O2 Flow Rate FiO2 08/12/17 05:36 98.2 72 18 108/55 (72) 97 Intake and Output 08/12/17 08/12/17 08/13/17 08:00 16:00 00:00 Intake Total 360 ml Balance 360 ml Assessment & Plan Problem List: (1) Adjustment disorder with mixed disturbance of emotions and conduct ICD Codes: F43.25 - Adjustment disorder with mixed disturbance of emotions and conduct (2) Intellectual disability ICD Codes: F79 - Unspecified intellectual disabilities (3) History of schizophrenia ICD Codes: Z86.59 - Personal history of other mental and behavioral disorders Assessment & Plan Continue current psychotropics as ordered. Continue other medications and care as ordered. Continue to monitor on the inpatient unit; patient is doing well following transfer to the lower acuity 2600 unit. Justification for Cont. Inpt. Risk for decompensation Discharge Planning [facility] evaluate the patient today. I have asked that counselor to explore other assisted living placement options. Patient is presently agreeable to remaining on the unit while awaiting [facility] placement. Brian Dumont MD Aug 12, 2017 11:25
[2017-08-12] MEDS: ACETAMINOPHEN 325 MG TAB PO PRN (14:19)
[2017-08-12 16:57] VITALS: BP 137/66; PULSE 81; RESP 17; TEMP 96.7; O2SAT 100
[2017-08-12] MEDS: traZODone HCL 50 MG TAB PO PRN (21:19)
[2017-08-13 06:05] VITALS: BP 144/67; PULSE 77; RESP 18; TEMP 97.5; O2SAT 97
[2017-08-13] MEDS: HYDROCHLOROTHIAZIDE 25 MG TAB PO SCH (08:10)
[2017-08-13] MEDS: ETHINYL ESTRADIOL PO SCH (08:10)
[2017-08-13] MEDS: clonazePAM 0.5 MG TAB PO SCH ×3 (08:10→17:08)
[2017-08-13] MEDS: FAMOTIDINE 20 MG TAB PO SCH (08:10)
[2017-08-13] MEDS: LEVONORGESTREL PO SCH (08:10)
[2017-08-13] MEDS: amLODIPine BESYLATE 5 MG TAB PO SCH (08:11)
[2017-08-13] MEDS: PANTOPRAZOLE SOD 20 MG DELAYED RELEASE TAB PO SCH (08:11)
[2017-08-13] MEDS: DIVALPROEX DR 500 MG TABEC PO SCH ×2 (08:11→21:27)
[2017-08-13] MEDS: ARIPiprazole 30 MG TAB PO SCH (08:11)
--- NOTE | 2017-08-13 11:58 | HHI.PYPN ---
Subjective Remarks Patient seen and examined with counselor and a nurse. Chart reviewed. Case discussed with nursing staff reports the patient is behaving very well on the unit. On my examination today, the patient is in good spirits. She denies any AVH. No SI or HI. Getting along well with other patients on the unit. Denies side effects from medications. No physical complaints. Review of Systems Except as stated in HPI: all other systems reviewed are Neg Objective Alert: Yes [place]: Person, Place Mood: Calm Affect: Euthymic (a little childlike) Memory Intact: Comment (not formally assessed) Hallucinations: Other (no AVH) Delusions: No Delusion Type: Other (no delusions) Suicidal: Ideation (denies SI) Homicidal: Ideation (denies HI) Insight/Judgment Poor Remarks No motoric abnormalities noted. Grooming and hygiene good. Labs Date/Time Source Procedure Growth Status 08/06/17 14:26 Urine Clean Catch Urine Culture - Final 50-100,000 CFU/ML MIXED GRAM POSITIVE... Complete Labs reviewed. Vitals/IOs Vital Signs Date Time Temp Pulse Resp B/P (MAP) Pulse Ox O2 Delivery O2 Flow Rate FiO2 08/13/17 06:05 97.5 77 18 144/67 (92) 97 Intake and Output 08/13/17 08/13/17 08/14/17 08:00 16:00 00:00 Intake Total 240 ml Balance 240 ml Assessment & Plan Problem List: (1) Adjustment disorder with mixed disturbance of emotions and conduct ICD Codes: F43.25 - Adjustment disorder with mixed disturbance of emotions and conduct (2) Intellectual disability ICD Codes: F79 - Unspecified intellectual disabilities (3) History of schizophrenia ICD Codes: Z86.59 - Personal history of other mental and behavioral disorders Assessment & Plan Continue current psychiatric medications as ordered. Continue to monitor on the 2600 unit. Continue other medications and care as ordered. Justification for Cont. Inpt. Risk for decompensation Discharge Planning Case discussed with counselor. Unfortunately, patient's father is unwilling to have the patient home. Happily, the patient has been accepted at [facility], and the patient has a bed there Wednesday. Anticipate discharge to [facility] Wednesday. Brian Dumont MD Aug 13, 2017 11:58
[2017-08-13 18:22] VITALS: BP 150/93; PULSE 89; RESP 18; TEMP 97; O2SAT 96
[2017-08-14 06:16] VITALS: BP 116/57; PULSE 65; RESP 20; TEMP 98; O2SAT 100
[2017-08-14] MEDS: FAMOTIDINE 20 MG TAB PO SCH (09:09)
[2017-08-14] MEDS: PANTOPRAZOLE SOD 20 MG DELAYED RELEASE TAB PO SCH (09:10)
[2017-08-14] MEDS: HYDROCHLOROTHIAZIDE 25 MG TAB PO SCH (09:10)
[2017-08-14] MEDS: DIVALPROEX DR 500 MG TABEC PO SCH ×2 (09:10→21:07)
[2017-08-14] MEDS: ARIPiprazole 30 MG TAB PO SCH (09:10)
[2017-08-14] MEDS: clonazePAM 0.5 MG TAB PO SCH ×3 (09:10→18:05)
[2017-08-14] MEDS: amLODIPine BESYLATE 5 MG TAB PO SCH (09:10)
[2017-08-14] MEDS: ETHINYL ESTRADIOL PO SCH (09:16)
[2017-08-14] MEDS: LEVONORGESTREL PO SCH (09:16)
--- NOTE | 2017-08-14 16:28 | HHI.PYPN ---
Subjective Remarks Patient was seen and case discussed with nursing. Patient is pleasant and cooperative with exam. Behaving well per nursing. She is "ready to go home." Auditory hallucinations are "here in the air." Not command in nature. She is compliant with her medications. Objective Alert: Yes [place]: Person, Place Mood: Calm Affect: Euthymic (a little childlike) Memory Intact: Comment (not formally assessed) Hallucinations: Auditory ("here and there") Delusions: No Delusion Type: Other (no delusions) Suicidal: Ideation (denies SI) Homicidal: Ideation (denies HI) Insight/Judgment Poor Labs Date/Time Source Procedure Growth Status 08/06/17 14:26 Urine Clean Catch Urine Culture - Final 50-100,000 CFU/ML MIXED GRAM POSITIVE... Complete Vitals/IOs Vital Signs Date Time Temp Pulse Resp B/P (MAP) Pulse Ox O2 Delivery O2 Flow Rate FiO2 08/14/17 06:16 98.0 65 20 116/57 (76) 100 Assessment & Plan Problem List: (1) Adjustment disorder with mixed disturbance of emotions and conduct ICD Codes: F43.25 - Adjustment disorder with mixed disturbance of emotions and conduct (2) Intellectual disability ICD Codes: F79 - Unspecified intellectual disabilities (3) History of schizophrenia ICD Codes: Z86.59 - Personal history of other mental and behavioral disorders Assessment & Plan Continue current treatment plan Justification for Cont. Inpt. Patient would decompensate in a less restrictive setting Giovanny Limon DO Aug 14, 2017 16:28
[2017-08-14 18:00] VITALS: BP 164/96; PULSE 74; RESP 16; TEMP 97.9; O2SAT 95
[2017-08-14] MEDS: traZODone HCL 50 MG TAB PO PRN (21:07)
[2017-08-15 05:43] VITALS: BP 134/73; PULSE 80; RESP 16; TEMP 97.6; O2SAT 98
[2017-08-15] MEDS: HYDROCHLOROTHIAZIDE 25 MG TAB PO SCH (08:33)
[2017-08-15] MEDS: amLODIPine BESYLATE 5 MG TAB PO SCH (08:34)
[2017-08-15] MEDS: clonazePAM 0.5 MG TAB PO SCH ×3 (08:34→17:30)
[2017-08-15] MEDS: PANTOPRAZOLE SOD 20 MG DELAYED RELEASE TAB PO SCH (08:34)
[2017-08-15] MEDS: ARIPiprazole 30 MG TAB PO SCH (08:34)
[2017-08-15] MEDS: FAMOTIDINE 20 MG TAB PO SCH (08:34)
[2017-08-15] MEDS: DIVALPROEX DR 500 MG TABEC PO SCH ×2 (08:34→20:20)
[2017-08-15] MEDS: ETHINYL ESTRADIOL PO SCH (08:43)
[2017-08-15] MEDS: LEVONORGESTREL PO SCH (08:43)
--- NOTE | 2017-08-15 16:39 | HHI.PYPN ---
Subjective Remarks Patient was seen and case discussed with nursing. Patient is bright and pleasant during the interview. She continues to have auditory hallucinations that are limited in frequent. She had them last night telling her about James. Says she easily ignores them. She is social and interacting with others. Dancing in the break room Objective Alert: Yes [place]: Person, Place Mood: Calm Affect: Euthymic (a little childlike) Memory Intact: Comment (not formally assessed) Hallucinations: Auditory ("here and there") Delusions: No Delusion Type: Other (no delusions) Suicidal: Ideation (denies SI) Homicidal: Ideation (denies HI) Insight/Judgment Improving Labs Date/Time Source Procedure Growth Status 08/06/17 14:26 Urine Clean Catch Urine Culture - Final 50-100,000 CFU/ML MIXED GRAM POSITIVE... Complete Vitals/IOs Vital Signs Date Time Temp Pulse Resp B/P (MAP) Pulse Ox O2 Delivery O2 Flow Rate FiO2 08/15/17 05:43 97.6 80 16 134/73 (93) 98 Assessment & Plan Problem List: (1) Adjustment disorder with mixed disturbance of emotions and conduct ICD Codes: F43.25 - Adjustment disorder with mixed disturbance of emotions and conduct (2) Intellectual disability ICD Codes: F79 - Unspecified intellectual disabilities (3) History of schizophrenia ICD Codes: Z86.59 - Personal history of other mental and behavioral disorders Assessment & Plan Continue current treatment plan Justification for Cont. Inpt. Patient would decompensate in a less restrictive setting Giovanny Limon DO Aug 15, 2017 16:39
[2017-08-15] MEDS: traZODone HCL 50 MG TAB PO PRN (20:20)
[2017-08-16 05:28] VITALS: BP 123/72; PULSE 78; RESP 17; TEMP 97.6; O2SAT 98
[2017-08-16] MEDS: LEVONORGESTREL PO SCH (08:06)
[2017-08-16] MEDS: ETHINYL ESTRADIOL PO SCH (08:06)
[2017-08-16] MEDS: ARIPiprazole 30 MG TAB PO SCH (08:07)
[2017-08-16] MEDS: PANTOPRAZOLE SOD 20 MG DELAYED RELEASE TAB PO SCH (08:07)
[2017-08-16] MEDS: clonazePAM 0.5 MG TAB PO SCH ×2 (08:07→12:03)
[2017-08-16] MEDS: FAMOTIDINE 20 MG TAB PO SCH (08:07)
[2017-08-16] MEDS: amLODIPine BESYLATE 5 MG TAB PO SCH (08:07)
[2017-08-16] MEDS: HYDROCHLOROTHIAZIDE 25 MG TAB PO SCH (09:00)
[2017-08-16] MEDS: DIVALPROEX DR 500 MG TABEC PO SCH (09:00)
[2017-08-16] MEDS ORDERED: ABIL30TA2 PO (11:42)
[2017-08-16] MEDS ORDERED: AMLO5 PO (11:42)
[2017-08-16] MEDS ORDERED: HYDR25TA5 PO (11:42)
[2017-08-16] MEDS ORDERED: PANT20 PO (11:42)
[2017-08-16] MEDS ORDERED: DIVA500T PO (11:42)
[2017-08-16] MEDS ORDERED: FAMO20TA2 PO (11:42)
[2017-08-16] MEDS ORDERED: CLON.5 PO (11:42)
--- NOTE | 2017-08-16 12:10 | HHI.DS ---
Psychiatry Discharge Summary Inpatient Psychiatric care?: Yes Advance Directive: No Reason Not Provided: PT DOES NOT HAVE ONE Mental Health AdvanceDirective: Yes Health Care Proxy: No Admission Admission Date Aug 03, 2017 at 14:35 Admission Diagnosis: (1) Schizophrenia, paranoid, chronic ICD Code: F20.0 - Paranoid schizophrenia Brief History 42-year-old female with multiyear history of schizophrenia, brought in for evaluation and treatment under a [place] act. Apparently the patient's father, with whom she resides, called the police after several weeks of worsening symptoms. The patient is apparently having both auditory and visual hallucinations. The patient's auditory hallucinations are of a command nature and tell her to kill herself, to kill her dog, and to kill members of her family. Apparently the patient's father is very worried and concerned about the patient's dangerousness to herself and others. Patient also reports visual hallucinations of seeing witches and vampires. Furthermore, upon interview, the patient is confused as to what medicines she takes and what reason she is here. She does intermittently admit to suicidal thinking as well as homicidal thinking and at other times she denies this. She is admitting to auditory hallucinations of a command nature. She denies the use of alcohol or drugs. Tobacco Use In Past 30 Days: No Tobacco Past 30 Days Alcohol Use: Never Hospital Course Patient was admitted to a locked, inpatient psychiatric unit. A general medical consultation was obtained. Appropriate precautions were in place throughout patient's hospital stay. Patient was seen and examined on the unit by psychiatry and also visited by counselor. Psychotropic medications were adjusted. Patient tolerated medications well without side effects. Patient had improvement in presenting psychiatric symptomatology during the course of her hospital stay. There was no evidence of any suicidality or homicidality on the inpatient unit. Patient was able to be transferred to the lower acuity unit from the higher acuity unit without incident. Counselor has been in contact with the patient's father who is unwilling to accept the patient back home. Assisted living placement has been arranged instead, and the patient is agreeable to going to assisted living. On the day of discharge: Patient seen and examined with nurse. Chart reviewed. Case discussed with nursing staff. On my examination today, the patient is in good spirits. She is excited about going to assisted living today. Mood is good and I can elicit no depressive or hypomanic/manic symptoms. She denies any suicidal or homicidal ideation, intent or plan on direct questioning and contracts for safety. Denies any audiovisual hallucinations. No delusions elicited. Denies side effects from medications. No physical complaints. Weighing the acute, chronic, and protective factors and based on the available evidence, I felt hat pouncing operator hand to a reasonable degree of medical certainty that the patient is at low imminent risk of harm to self or others from a mental illness as defined under the [place] and her level of function is adequate for outpatient care. Patient has maximized benefit from this inpatient psychiatric hospital stay and will be discharged to assisted living facility today with psychiatric follow-up as arranged by counselor. Patient is also to follow-up with primary care. I have counseled the patient regarding warning signs for need to return to the psychiatric emergency room as part of the general safety plan. Results Blood Pressure 123 / 72 Vital Signs Date Time Temp Pulse Resp B/P (MAP) Pulse Ox O2 Delivery O2 Flow Rate FiO2 08/16/17 05:28 97.6 78 17 123/72 (89) 98 Laboratory Results Test 08/04/17 11:58 08/09/17 20:03 Cholesterol Level 166 MG/DL (120-200) HDL Cholesterol 65.9 MG/DL (40.0-60.0) Hemoglobin A1c 4.9 % (4.3-6.0) LDL Cholesterol 83 MG/DL (0-99) Triglycerides Level 87 MG/DL (42-150) Valproic Acid (Depakene) Level 54 MCG/ML (50-100) Summary of Procedures None done Imaging None done Pending results at discharge: No Medications # of Antipsychotic meds at D/C: 1 Approp Antipsych med options 1 - Minimum of three failed multiple trials of monotherapy. 2 - Documented plan to taper to monotherapy due to previous use of multiple meds OR cross-taper in progress at D/C. 3 - Documentation of augmentation of Clozapine. 4 - Justification other than those listed in allowable values 1-3, document here : Discharge Discharge Date: Aug 16, 2017 Discharge Diagnosis: (1) Adjustment disorder with mixed disturbance of emotions and conduct Diagnosis: Principal (resolved) ICD Code: F43.25 - Adjustment disorder with mixed disturbance of emotions and conduct (2) Intellectual disability Diagnosis: Secondary (chronic) ICD Code: F79 - Unspecified intellectual disabilities (3) History of schizophrenia Diagnosis: Secondary (questionable, ?symptoms better explained by above diagnoses) ICD Code: Z86.59 - Personal history of other mental and behavioral disorders Mental Status Exam at Disch Patient is casually dressed. Patient is well groomed. Patient is awake and alert and oriented to person and hospital at least. No evidence of delirium. No motor abnormalities appreciated. Speech is within normal limits for rate, tone, volume. Memory grossly intact on clinical exam. Mood is good. Affect is full and reactive if a little bit childlike. Thought process linear. No delusions elicited. Denies audiovisual hallucinations and does not appear internally stimulated. Denies suicidal or homicidal ideation, intent, or plan and contracts for safety. Insight and judgment are likely chronically fair to poor. Pt Condition on Discharge: Stable Discharge Disposition: ACLF/CORRECTION Discharge Instructions Diet Instructions: As Tolerated, No Restrictions Activities you can perform: Weight Bearing as Sharon Scheduled Appointment: as per counselor's notes New Orders: BASIC METABOLIC PROF - 1 Week PLATELET COUNT - 1 Week New Medications: Amlodipine (Norvasc) 5 Mg Tab 5 MG PO DAILY for Blood Pressure Management for 15 Days, #15 TAB 1 Refill Aripiprazole (Abilify) 30 Mg Tab 30 MG PO DAILY for Mental Health for 15 Days, #15 TAB 1 Refill Clonazepam (Klonopin) 0.5 Mg Tab 0.5 MG PO TID for Mental Health for 15 Days, TAB [address] (Divalproex DR) 500 Mg Tabdr 500 MG PO BID for Mental Health for 15 Days, #30 TAB 1 Refill Famotidine (Famotidine) 20 Mg Tab 20 MG PO DAILY for Health for 15 Days, #15 TAB 1 Refill Hydrochlorothiazide (Hydrochlorothiazide) 25 Mg Tab 25 MG PO DAILY for Blood Pressure Management for 15 Days, #15 TAB 1 Refill Pantoprazole (Protonix) 20 Mg Tab 20 MG PO DAILY for Health for 15 Days, #15 TAB 1 Refill Continued Medications: Levonorgestrel-Ethinyl Estradiol (Levonorgestrel-Ethinyl Estradiol) 0.1-0.02 Mg Tab 1 TAB PO DAILY for Control, #28 TAB 0 Refills Discontinued Medications: Amlodipine (Amlodipine) 5 Mg Tab 5 MG PO DAILY for Blood Pressure Management, #30 TAB 0 Refills Aripiprazole (Aripiprazole) 15 Mg Tab 15 MG PO DAILY, #30 TAB 0 Refills Asenapine (Saphris) 10 Mg Subl 10 MG SL BID, #60 TAB.SL 0 Refills Clonazepam (Clonazepam) 0.5 Mg Tab 0.5 MG PO TID, #90 TAB [address] (Divalproex DR) 500 Mg Tabdr 500 MG PO BID for Control Seizures, #60 TAB 0 Refills Hydrochlorothiazide (Hydrochlorothiazide) 25 Mg Tab 25 MG PO DAILY, #30 TAB 0 Refills Pantoprazole (Pantoprazole) 20 Mg Tab 20 MG PO DAILY for Reflux, #30 TAB 0 Refills Ranitidine (Ranitidine) 150 Mg Tab 150 MG PO DAILY for Heartburn Management, #30 TAB 0 Refills Discharge Time <= 30 minutes Discharge/Advance Care Plan Health Problems: (1) Adjustment disorder with mixed disturbance of emotions and conduct (2) Intellectual disability (3) History of schizophrenia Goals to promote your health * To prevent worsening of your condition and complications * To maintain your health at the optimal level Directions to meet your goals Take your medications as prescribed Follow your dietary instruction Follow activity as directed Keep your appointments as scheduled Take your immunizations and boosters as scheduled If your symptoms worsen call your PCP, if no PCP go to Urgent Care Center or Emergency Room For 21/06 questions related to your inpatient stay or results of tests pending at discharge, please contact Dr. Brian Dumont at Smoking is Dangerous to Your Health. Avoid second hand smoking Brian Dumont MD Aug 16, 2017 11:42
== END 2017-08-16 13:55 | DRG 882 ==
LOC: NEPD 11:11 → NEDA 14:35 → H270 15:42 → H260 08-11 19:30
PROVIDERS: ADMIT Psychiatry & Neurology Psychiatry; ATTEND Psychiatry & Neurology Psychiatry
DX: F43.25 Adjustment disorder with mixed disturbance of emotions and conduct (principal); F79 Unspecified intellectual disabilities; I10 Essential (primary) hypertension; K21.9 Gastro-esophageal reflux disease without esophagitis; Z86.59 Personal history of other mental and behavioral disorders
CPT/HCPCS: 80053; 80061; 80164; 80307; 81001; 82140; 82306; 82607; 83036; 84443; 84703; 85025; 87086; 93005